=== PATIENT | male | born 1965 | race Caucasian/White ===

== ENCOUNTER → 2021-02-03 07:37 | Outpatient (CLI) | payer OTHER, SELFPAY ==
--- NOTE | ~2021-02-03 | XR_ITS ---
XR hand LT min 3V DATE: 02/03/2021 08:13 INDICATION: Left hand pain TECHNIQUE: 3 views COMPARISON: None FINDINGS: There is severe osteoarthritis at the first carpometacarpal joint and osteophyte is at mult iple interphalangeal joints, most prominent at the interphalangeal joint of the first digit and dista l interphalangeal joint of the fifth digit. No fracture or dislocation, periosteal reaction or bone destruction is detected. IMPRESSION: Polyarticular osteoarthritis Reviewed, dictated and finalized at location A.
--- NOTE | ~2021-02-03 | US_ITS ---
EXAMINATION: US soft tissue abdomen DATE: 02/03/2021 08:17 INDICATION: Right upper quadrant pain. Assess for hernia. TECHNIQUE: Multiple grayscale and Doppler ultrasound images of the abdomen were obtained. COMPARISON: None FINDINGS: Normal appearance to the subcutaneous fat and abdominal wall in the right upper quadrant region of co ncern. No hernia, abnormal mass or fluid collections identified. IMPRESSION: 1. Normal study. Reviewed, dictated and finalized at location A. IMPRESSION: 1. Normal study.
--- NOTE | ~2021-02-03 | XR_ITS ---
XR hand RT min 3V DATE: 02/03/2021 08:13 INDICATION: Right hand pain TECHNIQUE: 3 views COMPARISON: None FINDINGS: There is moderately severe osteoarthritis at the first carpometacarpal joint. Osteoarthriti c changes noted at some of the interphalangeal joints, most pronounced at the distal interphalangeal joint of the fifth digit. No fracture, dislocation, periosteal reaction or bone destruction is evident. IMPRESSION: Polyarticular osteoarthritis Reviewed, dictated and finalized at location A.
== END ==
PROVIDERS: PCP Family Medicine; Visit Provider Nurse Practitioner Family
DX: R10.9 Unspecified abdominal pain (principal); M19.041 Primary osteoarthritis, right hand; M19.042 Primary osteoarthritis, left hand
CPT/HCPCS: 73130; 76705